=== PATIENT | female | born 1965 | race Caucasian/White ===

== ENCOUNTER 2017-01-17 23:51 | Emergency (ER) | payer MEDICAID ==
[~2017-01-17] VITALS: Ht 170.2 cm; Wt 78.9 kg
[~2017-01-17 23:51] MED LIST: AMLO5TAB7 PO; ASPI81EC97 PO; ATOR20TA40 PO; BENA20TA PO; CLON2TAB PO; CLOP75TA PO; DOCU100C14 PO; FERR325E14 PO; QUET400T PO; [UNRECOGNIZED DRUG - CODE] PO
[2017-01-17 23:54] VITALS: BP 155/100
--- NOTE | 2017-01-18 00:49 | NUR ---
PT RETURN FROM CT TO LOBBY
--- NOTE | 2017-01-18 01:10 | NUR ---
PT TAKEN TO BED 6
--- NOTE | 2017-01-18 01:14 | NUR ---
Dr. Hernandez evaluating patient at bedside.
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
[2017-01-18] MEDS ORDERED: fentaNYL 0.05 MG/ML VIAL IM ONE (01:25)
[2017-01-18 01:58] VITALS: BP 140/70
--- NOTE | 2017-01-18 01:58 | NUR ---
Patient discharged with v/s stable. Written and verbal after care instructions given and explained. Patient alert, oriented and verbalized understanding of instructions. Ambulatory with steady gait. All questions addressed prior to discharge. ID band removed. Patient advised to follow up with PMD. Rx of TRAMADOL 50 MG, REGLAN 10 MG given. Patient educated on indication of medication including possible reaction and side effects. Opportunity to ask questions provided and answered.
== END 2017-01-18 01:58 | disposition home or self-care (01) ==
LOC: MED 23:51
DX: S09.90XA Unspecified injury of head, initial encounter (principal); I10 Essential (primary) hypertension; Z88.6 Allergy status to analgesic agent; Z88.5 Allergy status to narcotic agent; W22.8XXA Striking against or struck by other objects, initial encounter; Y93.89 Activity, other specified; Y92.89 Other specified places as the place of occurrence of the external cause; Y99.8 Other external cause status
CPT/HCPCS: 70450; 96372; 99283; J3010

== ENCOUNTER 2017-08-11 15:04 | Emergency (ER) | payer MEDICAID ==
[~2017-08-11] VITALS: Ht 170.2 cm; Wt 75.5 kg
[~2017-08-11 15:04] MED LIST changes: +DOCU-7 PO; -DOCU100C14 PO
[2017-08-11 15:24] VITALS: BP 162/92
--- NOTE | 2017-08-11 15:35 | NUR ---
PATIENT PRESENTS TO ED WITH C/O DIARRHEA X 5 WKS; STERNAL CP, LEFT LEG PAIN 10/10 HX; HTN, CARDIAC DISORDERS (STENTS), ASTHMA RX; LOTENSIN, KLONIPIN, ASPIRIN, ATROVASTATIN, , FE SULFATE, AMLOPIDINE; DENIES N/V/; SKIN IS PINK/WARM/DRY; AAOX4 WITH EVEN AND STEADY GAIT; LUNGS CLEAR BL; HR EVEN AND REGULAR; PT DENIES ANY FEVER, CP, SOB, OR COUGH AT THIS TIME; PATIENT STATES PAIN OF 10/10 AT THIS TIME; VSS; PATIENT POSITIONED FOR COMFORT; HOB ELEVATED; BEDRAILS UP X2; BED DOWN. ER MD MADE AWARE OF PT STATUS.
--- NOTE | 2017-08-11 15:46 | NUR ---
DR JIMENEZ EVALUATING AAO PT AT BEDSIDE
[2017-08-11] MEDS ORDERED: NACL 0.9% 1,000 ML IV SCH (15:51)
[2017-08-11 16:21] LABS: BASOPHILS # (AUTO) 0.1 K/uL (0.00-0.22); EOSINOPHILS # (AUTO) 0.3 K/uL (0-0.4); EOSINOPHILS % (AUTO) 10.4 % (0.0-4.0); HEMOGLOBIN 10.7 g/dL (12.0-16.0); LYMPHOCYTES # (AUTO) 0.7 K/uL (2.5-16.5); LYMPHOCYTES % (AUTO) 21.5 % (20.5-51.1); MEAN CORPUSCULAR HEMOGLOBIN 28 pg (27-31); MEAN CORPUSCULAR HGB CONC 33 g/dL (33-37); MEAN CORPUSCULAR VOLUME 85 fL (80-94); MONOCYTES # (AUTO) 0.2 K/uL (0.8-1.0); MONOCYTES % (AUTO) 7.7 % (1.7-9.3); NEUTROPHILS # (AUTO) 1.8 K/uL (1.8-7.7); NEUTROPHILS % (AUTO) 58.4 % (42.2-75.2); PLATELET COUNT (AUTO) 233 K/uL (140-450); RED BLOOD CELL COUNT(AUTO) 3.87 MIL/uL (4.20-5.40); RED CELL DISTRIBUTION WIDTH 15.3 % (11.6-13.7); WHITE BLOOD COUNT (AUTO) 3.1 K/uL (4.8-10.8)
--- NOTE | 2017-08-11 16:40 | NUR ---
PT TAKEN OFF THE UNIT VIA GURNEY BY LAMINATOR PRINTED CIRCUIT BOARDS ALEK FOR CT OF THE ABDOMEN
[2017-08-11 16:47] LABS: ALBUMIN 3.3 g/dL (3.4-5.0); ANION GAP 12.8 (8-16); CREATININE 0.7 mg/dL (0.6-1.3); POTASSIUM 3.8 mmol/L (3.5-5.1); TOTAL BILIRUBIN 0.3 mg/dL (0.0-1.0)
--- NOTE | 2017-08-11 17:32 | NUR ---
DR JIMENEZ UPDATING PT AT BEDSIDE
[2017-08-11 18:08] VITALS: BP 144/88
--- NOTE | 2017-08-11 18:08 | NUR ---
Patient discharged with v/s stable. Written and verbal after care instructions given and explained. Patient alert, oriented and verbalized understanding of instructions. Ambulatory with steady gait. All questions addressed prior to discharge. ID band removed. Patient advised to follow up with PMD. Rx of CIPRO, LOMOTIL, ULTRAM given. Patient educated on indication of medication including possible reaction and side effects. Opportunity to ask questions provided and answered.
[2017-08-11 19:13] LABS: APPEARANCE,URINE CLEAR (CLEAR); BILIRUBIN,URINE NEGATIVE (NEGATIVE); BLOOD, URINE NEGATIVE (NEGATIVE); COLOR,URINE YELLOW (YELLOW); LEUKOCYTE ESTERASE ,URINE NEGATIVE (NEGATIVE); NITRITE, URINE NEGATIVE (NEGATIVE); PH,URINE 6.5 (5.0-9.0); UGLUCOSE NEGATIVE (NEGATIVE)
== END 2017-08-11 18:08 | disposition home or self-care (01) ==
LOC: MED 15:04
DX: N93.8 Other specified abnormal uterine and vaginal bleeding (principal); R19.7 Diarrhea, unspecified; R07.89 Other chest pain; I10 Essential (primary) hypertension; Z98.62 Peripheral vascular angioplasty status; Z88.6 Allergy status to analgesic agent; Z79.899 Other long term (current) drug therapy
CPT/HCPCS: 36415; 71010; 74176; 80053; 81003; 81025; 83690; 83880; 84484; 84703; 85025; 85610; 85730; 86886; 86900; 86901; 93005; 96360; 99285; J7030; Q0092

== ENCOUNTER 2018-03-31 05:25 | Emergency (ER) | payer MEDICAID, OTHER ==
[~2018-03-31] VITALS: Ht 170.2 cm; Wt 74.6 kg
[2018-03-31 05:33] VITALS: BP 165/89
[2018-03-31 06:31] VITALS: BP 158/89
== END 2018-03-31 06:31 | disposition home or self-care (01) ==
LOC: MED 05:25
DX: N93.8 Other specified abnormal uterine and vaginal bleeding (principal); R21 Rash and other nonspecific skin eruption; I25.2 Old myocardial infarction; Z79.899 Other long term (current) drug therapy; Z88.6 Allergy status to analgesic agent
CPT/HCPCS: 99283

== ENCOUNTER 2018-03-31 17:17 | Emergency (ER) | payer OTHER ==
[~2018-03-31] VITALS: Ht 167.6 cm; Wt 68.5 kg
--- NOTE | 2018-03-31 17:17 | NUR ---
PT BIBA TO ER BED 06
[2018-03-31 17:20] VITALS: BP 170/108
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
--- NOTE | 2018-03-31 18:30 | NUR ---
Patient appears to be resting comfortably in bed. Vital Signs within normal limits. Respirations even and unlabored.
--- NOTE | 2018-03-31 19:08 | NUR ---
RECIEVED REPORT FROM KARSTEN HAM.
--- NOTE | 2018-03-31 19:37 | NUR ---
DR SARAVIA AT BEDSIDE EVALUATING PATIENT.
[2018-03-31] MEDS ORDERED: CEPHALEXIN 500 MG CAP PO ONE (19:55)
[2018-03-31] MEDS ORDERED: predniSONE 20 MG TAB PO ONE (19:55)
[2018-03-31 20:25] VITALS: BP 170/108
--- NOTE | 2018-03-31 20:25 | NUR ---
Patient discharged with v/s stable with decreased pain. Written and verbal after care instructions given and explained. Patient alert, oriented and verbalized understanding of instructions. Ambulatory with steady gait. All questions addressed prior to discharge. ID band removed. Patient advised to follow up with PMD. Rx of Keflex, Prednisone given. Patient educated on indication of medication including possible reaction and side effects. Opportunity to ask questions provided and answered.
== END 2018-03-31 20:25 | disposition home or self-care (01) ==
LOC: MED 17:17
DX: L30.9 Dermatitis, unspecified (principal); L03.114 Cellulitis of left upper limb; I10 Essential (primary) hypertension; I25.2 Old myocardial infarction; Z88.6 Allergy status to analgesic agent; Z79.899 Other long term (current) drug therapy
CPT/HCPCS: 81002; 81025; 99284; J7512; Q0163

== ENCOUNTER 2018-05-30 12:00 | Emergency (ER) | payer OTHER ==
[~2018-05-30] VITALS: Ht 167.6 cm; Wt 73.9 kg
--- NOTE | 2018-05-30 12:18 | NUR ---
PT AMBULATES TO BED 7
[2018-05-30 12:27] VITALS: BP 151/85
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
--- NOTE | 2018-05-30 12:31 | NUR ---
DR COTA EVALUATING PT AT BEDSIDE
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
[2018-05-30] MEDS ORDERED: diphenhydrAMINE 50 MG/ML VIAL IM ONE (13:55)
[2018-05-30] MEDS ORDERED: HYDROmorphone PFS 2 MG/ML SYR IM ONE (13:55)
--- NOTE | 2018-05-30 14:36 | NUR ---
[place] [employer] ARRIVED AT THE REQUEST OF DR COTA
[2018-05-30 15:30] VITALS: BP 177/97
--- NOTE | 2018-05-30 15:30 | NUR ---
Patient discharged with v/s stable. Written and verbal after care instructions given and explained. Patient alert, oriented and verbalized understanding of instructions. Ambulatory with steady gait. All questions addressed prior to discharge. ID band removed. Patient advised to follow up with PMD. Rx of FIORICET given. Patient educated on indication of medication including possible reaction and side effects. Opportunity to ask questions provided and answered.
== END 2018-05-30 15:30 | disposition home or self-care (01) ==
LOC: MED 12:00
DX: R51 Headache (principal); M54.2 Cervicalgia; J45.909 Unspecified asthma, uncomplicated; I10 Essential (primary) hypertension; Z88.5 Allergy status to narcotic agent; Z88.1 Allergy status to other antibiotic agents; Z88.2 Allergy status to sulfonamides; Z79.899 Other long term (current) drug therapy; Z79.1 Long term (current) use of non-steroidal anti-inflammatories (NSAID)
CPT/HCPCS: 70450; 72125; 96372; 99284; J1170; J1200

== ENCOUNTER 2018-06-21 14:35 | Inpatient (IN) | payer OTHER ==
[~2018-06-21] VITALS: Ht 167.6 cm; Wt 74.8 kg
[2018-06-21 15:02] VITALS: BP 177/104
[2018-06-21] MEDS ORDERED: NACL 0.9% 1,000 ML IV ONE (15:35)
[2018-06-21] MEDS ORDERED: diphenhydrAMINE 50 MG/ML VIAL IVP ONE (15:35)
[2018-06-21] MEDS ORDERED: LORazepam 2 MG/ML VIAL IVP ONE (15:35)
[2018-06-21 16:21] LABS: BASOPHILS # (AUTO) 0.1 K/uL (0.00-0.22); BASOPHILS % (AUTO) 0.8 % (0.0-2.0); EOSINOPHILS # (AUTO) 0.2 K/uL (0-0.4); EOSINOPHILS % (AUTO) 3.2 % (0.0-4.0); HEMATOCRIT 37.6 % (36-48); HEMOGLOBIN 12.4 g/dL (12.0-16.0); LYMPHOCYTES # (AUTO) 1.2 K/uL (2.5-16.5); LYMPHOCYTES % (AUTO) 16.4 % (20.5-51.1); MEAN CORPUSCULAR HEMOGLOBIN 30 pg (27-31); MEAN CORPUSCULAR HGB CONC 33 g/dL (33-37); MEAN CORPUSCULAR VOLUME 90.8 fL (80-94); MONOCYTES # (AUTO) 0.4 K/uL (0.8-1.0); MONOCYTES % (AUTO) 4.9 % (1.7-9.3); NEUTROPHILS # (AUTO) 5.4 K/uL (1.8-7.7); NEUTROPHILS % (AUTO) 74.7 % (42.2-75.2); PLATELET COUNT (AUTO) 271 K/uL (140-450); RED BLOOD CELL COUNT(AUTO) 4.14 MIL/uL (4.20-5.40); RED CELL DISTRIBUTION WIDTH 14.9 % (11.6-13.7); WHITE BLOOD COUNT (AUTO) 7.2 K/uL (4.8-10.8)
[2018-06-21 16:55] LABS: ANION GAP 14.4 (8-16); CARBON DIOXIDE 24.1 mmol/L (21-32); CHLORIDE 106 mmol/L (98-107); CREATININE 0.5 mg/dL (0.6-1.3); GFR ARICAN-AMERICAN 167 mL/min (>90); GLUCOSE 106 mg/dL (74-106); POTASSIUM 3.5 mmol/L (3.5-5.1); SODIUM SERUM 141 mmol/L (136-145); UREA NITROGEN, BLOOD 8 mg/dL (7-18)
[2018-06-21 16:57] LABS: PROTHROMBIN TIME 11.4 secs (10.8-13.4)
[2018-06-21 17:02] LABS: ALBUMIN 3.9 g/dL (3.4-5.0); ASPARTATE AMINOTRANSFERASE 33 U/L (15-37); TOTAL BILIRUBIN 0.6 mg/dL (0.0-1.0)
[2018-06-21 17:04] LABS: SALICYLATE < 2.8 mg/dL (2.8-20.0)
[2018-06-21 17:08] LABS: ACETAMINOPHEN < 0.5 ug/ml (10-30)
[2018-06-21] MEDS ORDERED: ONDANSETRON 4 MG/2 ML VIAL IVP PRN (17:15)
[2018-06-21] MEDS ORDERED: HYDROcodone/APAP 5/325 MG 1 TAB TAB PO PRN (17:15)
[2018-06-21] MEDS ORDERED: ACETAMINOPHEN 325 MG TAB PO PRN (17:15)
[2018-06-21 17:28] LABS: APPEARANCE,URINE CLEAR (CLEAR); BILIRUBIN,URINE NEGATIVE (NEGATIVE); BLOOD, URINE NEGATIVE (NEGATIVE); COLOR,URINE YELLOW (YELLOW); LEUKOCYTE ESTERASE ,URINE NEGATIVE (NEGATIVE); NITRITE, URINE NEGATIVE (NEGATIVE); UGLUCOSE NEGATIVE (NEGATIVE)
[2018-06-21 17:38] LABS: BARBITURATE, URINE NEG. ng/ml (NEG <=200); BENZODIAZEPINE, URINE NEG. ng/mL (NEG <=200); CANNABINOID, URINE POS. ng/mL (NEG <=50); COCAINE, URINE NEG. ng/mL (NEG <=300); OPIATE, URINE NEG. ng/mL (NEG <=2000); PHENCYCLIDINE SCREEN,URINE NEG. ng/mL (NEG <=25)
[2018-06-21 20:00] VITALS: BP 170/90
[2018-06-21] MEDS ORDERED: NON-FORMULARY ITEM (Atorvastatin Calcium 20 MG) PO SCH (21:00)
[2018-06-21] MEDS ORDERED: NON-FORMULARY ITEM (Docusate Sodium 100 MG) PO SCH (21:00)
[2018-06-21] MEDS ORDERED: NITROGLYCERIN 0.4 MG TAB SL PRN (21:45)
[2018-06-21] MEDS: DOCUSATE SODIUM 100 MG GELCAP PO SCH (21:51)
[2018-06-21] MEDS: clonazePAM 0.5 MG TAB PO PRN (21:54)
[2018-06-22 00:15] VITALS: BP 148/78
[2018-06-22 00:43] LABS: CREATINE KINASE MB 4.1 ng/mL (0-3.6)
[2018-06-22 05:01] VITALS: BP 104/53
[2018-06-22 08:00] VITALS: BP 113/68
[2018-06-22] MEDS: CLOPIDOGREL 75 MG TAB PO SCH ×2 (09:00→14:16)
[2018-06-22] MEDS ORDERED: QUEtiapine FUMARATE 100 MG TAB PO SCH (09:00)
[2018-06-22] MEDS: ATORVASTATIN 20 MG TAB PO SCH ×2 (09:00→14:16)
[2018-06-22] MEDS: DOCUSATE SODIUM 100 MG GELCAP PO SCH ×2 (09:00→21:09)
[2018-06-22] MEDS: amLODIPine 5 MG TAB PO SCH (09:00)
[2018-06-22] MEDS ORDERED: NON-FORMULARY ITEM (Amlodipine Besylate (Amlodipine) 5 MG) PO SCH (09:00)
[2018-06-22] MEDS: ASPIRIN 81 MG TAB.CHEW PO SCH ×2 (09:00→14:16)
[2018-06-22 10:12] LABS: BASOPHILS % (AUTO) 1.2 % (0.0-2.0); EOSINOPHILS # (AUTO) 0.2 K/uL (0-0.4); EOSINOPHILS % (AUTO) 10.5 % (0.0-4.0); HEMATOCRIT 33.1 % (36-48); HEMOGLOBIN 11.1 g/dL (12.0-16.0); LYMPHOCYTES # (AUTO) 0.7 K/uL (2.5-16.5); LYMPHOCYTES % (AUTO) 35.9 % (20.5-51.1); MEAN CORPUSCULAR HEMOGLOBIN 30 pg (27-31); MEAN CORPUSCULAR HGB CONC 34 g/dL (33-37); MEAN CORPUSCULAR VOLUME 90.2 fL (80-94); MONOCYTES # (AUTO) 0.2 K/uL (0.8-1.0); NEUTROPHILS # (AUTO) 0.8 K/uL (1.8-7.7); NEUTROPHILS % (AUTO) 42.4 % (42.2-75.2); PLATELET COUNT (AUTO) 218 K/uL (140-450); RED BLOOD CELL COUNT(AUTO) 3.67 MIL/uL (4.20-5.40)
[2018-06-22 10:51] LABS: WHITE BLOOD COUNT (AUTO) 1.8 K/uL (4.8-10.8)
[2018-06-22 12:00] VITALS: BP 111/70
[2018-06-22 13:04] LABS: ALBUMIN 2.9 g/dL (3.4-5.0); ANION GAP 10.5 (8-16); CARBON DIOXIDE 27.2 mmol/L (21-32); CREATININE 0.7 mg/dL (0.6-1.3); MAGNESIUM 1.8 mg/dL (1.8-2.4); POTASSIUM 3.7 mmol/L (3.5-5.1); TOTAL BILIRUBIN 0.4 mg/dL (0.0-1.0)
[2018-06-22] MEDS ORDERED: DIVALPROEX 500 MG TABEC PO SCH (13:12)
[2018-06-22] MEDS ORDERED: HYDROcodone/APAP 5/325 MG 1 TAB TAB PO PRN (14:13)
[2018-06-22 16:00] VITALS: BP 128/79
[2018-06-22] MEDS ORDERED: DIVA500T1 PO (17:10)
[2018-06-22 20:00] VITALS: BP 119/63
[2018-06-22] MEDS: QUEtiapine FUMARATE 100 MG TAB PO SCH (21:09)
[2018-06-22] MEDS: DIVALPROEX 500 MG TABEC PO SCH (21:09)
[2018-06-23] VITALS: BP 126/72
[2018-06-23] MEDS ORDERED: ALBUTEROL 0.083% 2.5 MG/3 ML NEBU INH PRN (03:15)
[2018-06-23] MEDS ORDERED: ALBUTEROL 0.083% 2.5 MG/3 ML NEBU INH ONE (03:27)
[2018-06-23 04:00] VITALS: BP 129/62
[2018-06-23 07:49] LABS: BASOPHILS % (AUTO) 0.9 % (0.0-2.0); EOSINOPHILS # (AUTO) 0.3 K/uL (0-0.4); EOSINOPHILS % (AUTO) 15.8 % (0.0-4.0); HEMOGLOBIN 11.2 g/dL (12.0-16.0); LYMPHOCYTES # (AUTO) 0.7 K/uL (2.5-16.5); LYMPHOCYTES % (AUTO) 32.9 % (20.5-51.1); MEAN CORPUSCULAR HEMOGLOBIN 31 pg (27-31); MEAN CORPUSCULAR HGB CONC 34 g/dL (33-37); MEAN CORPUSCULAR VOLUME 90.2 fL (80-94); MONOCYTES # (AUTO) 0.2 K/uL (0.8-1.0); MONOCYTES % (AUTO) 9.7 % (1.7-9.3); NEUTROPHILS # (AUTO) 0.8 K/uL (1.8-7.7); NEUTROPHILS % (AUTO) 40.7 % (42.2-75.2); PLATELET COUNT (AUTO) 207 K/uL (140-450); RED BLOOD CELL COUNT(AUTO) 3.66 MIL/uL (4.20-5.40); RED CELL DISTRIBUTION WIDTH 14.5 % (11.6-13.7)
[2018-06-23 08:00] VITALS: BP 138/82
[2018-06-23] MEDS: ASPIRIN 81 MG TAB.CHEW PO SCH (09:38)
[2018-06-23] MEDS: amLODIPine 5 MG TAB PO SCH (09:39)
[2018-06-23] MEDS: CLOPIDOGREL 75 MG TAB PO SCH (09:39)
[2018-06-23] MEDS: DIVALPROEX 500 MG TABEC PO SCH ×2 (09:39→20:17)
[2018-06-23] MEDS: ATORVASTATIN 20 MG TAB PO SCH (09:39)
[2018-06-23] MEDS: DOCUSATE SODIUM 100 MG GELCAP PO SCH ×2 (09:39→20:17)
[2018-06-23 12:00] VITALS: BP 132/50
[2018-06-23] MEDS: ALBUTEROL SULFATE/IPRATROPIU 3 ML SOL IH PRN (13:42)
[2018-06-23 16:00] VITALS: BP 147/77
[2018-06-23] MEDS: ALBUTEROL SULFATE/IPRATROPIU 3 ML SOL IH SCH ×2 (19:00→20:52)
[2018-06-23 20:00] VITALS: BP 145/78
[2018-06-23] MEDS: QUEtiapine FUMARATE 100 MG TAB PO SCH (20:17)
[2018-06-23] MEDS ORDERED: DIVALPROEX 500 MG TABER PO SCH (21:00)
[2018-06-24 00:20] VITALS: BP 136/72
[2018-06-24] MEDS: ALBUTEROL SULFATE/IPRATROPIU 3 ML SOL IH SCH ×6 (03:00→23:00)
[2018-06-24 04:00] VITALS: BP 115/64
[2018-06-24 06:31] LABS: BASOPHILS % (AUTO) 0.7 % (0.0-2.0); EOSINOPHILS # (AUTO) 0.3 K/uL (0-0.4); EOSINOPHILS % (AUTO) 13.2 % (0.0-4.0); HEMATOCRIT 35.9 % (36-48); HEMOGLOBIN 12.2 g/dL (12.0-16.0); LYMPHOCYTES # (AUTO) 0.8 K/uL (2.5-16.5); LYMPHOCYTES % (AUTO) 33.1 % (20.5-51.1); MEAN CORPUSCULAR HEMOGLOBIN 31 pg (27-31); MEAN CORPUSCULAR HGB CONC 34 g/dL (33-37); MEAN CORPUSCULAR VOLUME 90.3 fL (80-94); MONOCYTES # (AUTO) 0.3 K/uL (0.8-1.0); PLATELET COUNT (AUTO) 245 K/uL (140-450); RED BLOOD CELL COUNT(AUTO) 3.97 MIL/uL (4.20-5.40); RED CELL DISTRIBUTION WIDTH 14.6 % (11.6-13.7); WHITE BLOOD COUNT (AUTO) 2.4 K/uL (4.8-10.8)
[2018-06-24 08:00] VITALS: BP 119/119
[2018-06-24] MEDS: DOCUSATE SODIUM 100 MG GELCAP PO SCH ×2 (10:16→20:56)
[2018-06-24] MEDS: ATORVASTATIN 20 MG TAB PO SCH (10:16)
[2018-06-24] MEDS: amLODIPine 5 MG TAB PO SCH (10:16)
[2018-06-24] MEDS: CLOPIDOGREL 75 MG TAB PO SCH (10:17)
[2018-06-24] MEDS: ASPIRIN 81 MG TAB.CHEW PO SCH (10:17)
[2018-06-24] MEDS: DIVALPROEX 500 MG TABEC PO SCH ×2 (10:17→20:57)
[2018-06-24 12:00] VITALS: BP 146/87
[2018-06-24] MEDS ORDERED: RANOLAZINE 500 MG TER PO SCH (12:00)
[2018-06-24] MEDS: clonazePAM 0.5 MG TAB PO PRN (13:38)
[2018-06-24 16:00] VITALS: BP 116/80
[2018-06-24] MEDS: BUDESONIDE 0.25 MG/2 ML NEBU INH SCH (19:30)
[2018-06-24 20:00] VITALS: BP 134/73
[2018-06-24] MEDS: QUEtiapine FUMARATE 100 MG TAB PO SCH (20:56)
[2018-06-24] MEDS: RANOLAZINE 500 MG TER PO SCH (20:57)
[2018-06-24] MEDS: ALBUTEROL SULFATE/IPRATROPIU 3 ML SOL IH PRN (21:22)
[2018-06-25] MEDS: ALBUTEROL SULFATE/IPRATROPIU 3 ML SOL IH SCH ×6 (03:09→23:00)
[2018-06-25 04:00] VITALS: BP 115/66
[2018-06-25 06:47] LABS: EOSINOPHILS # (AUTO) 0.3 K/uL (0-0.4); HEMATOCRIT 36.8 % (36-48); HEMOGLOBIN 12.5 g/dL (12.0-16.0); LYMPHOCYTES # (AUTO) 0.9 K/uL (2.5-16.5); LYMPHOCYTES % (AUTO) 28.1 % (20.5-51.1); MEAN CORPUSCULAR HEMOGLOBIN 30 pg (27-31); MEAN CORPUSCULAR HGB CONC 34 g/dL (33-37); MEAN CORPUSCULAR VOLUME 89.1 fL (80-94); MONOCYTES # (AUTO) 0.4 K/uL (0.8-1.0); NEUTROPHILS # (AUTO) 1.6 K/uL (1.8-7.7); NEUTROPHILS % (AUTO) 50.9 % (42.2-75.2); PLATELET COUNT (AUTO) 240 K/uL (140-450); RED BLOOD CELL COUNT(AUTO) 4.13 MIL/uL (4.20-5.40); RED CELL DISTRIBUTION WIDTH 14.6 % (11.6-13.7); WHITE BLOOD COUNT (AUTO) 3.2 K/uL (4.8-10.8)
[2018-06-25] MEDS: BUDESONIDE 0.25 MG/2 ML NEBU INH SCH ×3 (07:30→19:39)
[2018-06-25 08:00] VITALS: BP 139/84
[2018-06-25] MEDS ORDERED: predniSONE 20 MG TAB PO SCH (09:15)
[2018-06-25] MEDS: ALBUTEROL SULFATE/IPRATROPIU 3 ML SOL IH PRN (09:28)
[2018-06-25] MEDS: DOCUSATE SODIUM 100 MG GELCAP PO SCH ×2 (09:39→20:14)
[2018-06-25] MEDS: CLOPIDOGREL 75 MG TAB PO SCH (09:40)
[2018-06-25] MEDS: amLODIPine 5 MG TAB PO SCH (09:40)
[2018-06-25] MEDS: ATORVASTATIN 20 MG TAB PO SCH (09:40)
[2018-06-25] MEDS: DIVALPROEX 500 MG TABEC PO SCH ×2 (09:40→20:14)
[2018-06-25] MEDS: ASPIRIN 81 MG TAB.CHEW PO SCH (09:41)
[2018-06-25] MEDS: RANOLAZINE 500 MG TER PO SCH ×2 (09:43→20:21)
[2018-06-25] MEDS: LORazepam 1 MG TAB PO PRN ×2 (10:49→20:13)
[2018-06-25 16:00] VITALS: BP 137/78
[2018-06-25] MEDS: QUEtiapine FUMARATE 100 MG TAB PO SCH (20:15)
[2018-06-26 04:00] VITALS: BP 115/64
[2018-06-26] MEDS: ALBUTEROL SULFATE/IPRATROPIU 3 ML SOL IH SCH ×6 (07:17→23:00)
[2018-06-26] MEDS: BUDESONIDE 0.25 MG/2 ML NEBU INH SCH (07:18)
[2018-06-26 08:00] VITALS: BP 117/70
[2018-06-26] MEDS: LORazepam 1 MG TAB PO PRN (08:04)
[2018-06-26] MEDS: RANOLAZINE 500 MG TER PO SCH ×2 (09:04→20:16)
[2018-06-26] MEDS: predniSONE 20 MG TAB PO SCH (09:05)
[2018-06-26] MEDS: CLOPIDOGREL 75 MG TAB PO SCH (09:06)
[2018-06-26] MEDS: DOCUSATE SODIUM 100 MG GELCAP PO SCH ×2 (09:06→20:15)
[2018-06-26] MEDS: ATORVASTATIN 20 MG TAB PO SCH (09:07)
[2018-06-26] MEDS: DIVALPROEX 500 MG TABEC PO SCH ×2 (09:07→20:15)
[2018-06-26] MEDS: amLODIPine 5 MG TAB PO SCH (09:08)
[2018-06-26] MEDS: ASPIRIN 81 MG TAB.CHEW PO SCH (09:08)
[2018-06-26] MEDS: ALBUTEROL SULFATE/IPRATROPIU 3 ML SOL IH PRN (13:26)
[2018-06-26 16:00] VITALS: BP 129/68
[2018-06-26] MEDS: QUEtiapine FUMARATE 100 MG TAB PO SCH (20:16)
[2018-06-27] VITALS: BP 121/65
[2018-06-27] MEDS: ALBUTEROL SULFATE/IPRATROPIU 3 ML SOL IH SCH ×6 (03:00→23:00)
[2018-06-27] MEDS: clonazePAM 0.5 MG TAB PO PRN (04:47)
[2018-06-27] MEDS: ALBUTEROL SULFATE/IPRATROPIU 3 ML SOL IH PRN (04:59)
[2018-06-27] MEDS: BUDESONIDE 0.25 MG/2 ML NEBU INH SCH ×2 (06:42→19:30)
[2018-06-27 08:00] VITALS: BP 117/64
[2018-06-27] MEDS: CLOPIDOGREL 75 MG TAB PO SCH (08:43)
[2018-06-27] MEDS: ATORVASTATIN 20 MG TAB PO SCH (08:43)
[2018-06-27] MEDS: DIVALPROEX 500 MG TABEC PO SCH ×2 (08:44→20:48)
[2018-06-27] MEDS: DOCUSATE SODIUM 100 MG GELCAP PO SCH ×2 (08:44→20:47)
[2018-06-27] MEDS: predniSONE 20 MG TAB PO SCH (08:44)
[2018-06-27] MEDS: amLODIPine 5 MG TAB PO SCH (08:44)
[2018-06-27] MEDS: ASPIRIN 81 MG TAB.CHEW PO SCH (08:44)
[2018-06-27] MEDS: RANOLAZINE 500 MG TER PO SCH ×2 (08:45→20:48)
[2018-06-27] MEDS: LORazepam 1 MG TAB PO PRN (14:45)
[2018-06-27 16:00] VITALS: BP 126/67
[2018-06-27] MEDS: QUEtiapine FUMARATE 100 MG TAB PO SCH (20:48)
[2018-06-27 23:55] VITALS: BP 122/76
[2018-06-28] MEDS: clonazePAM 0.5 MG TAB PO PRN ×2 (01:51→20:34)
[2018-06-28] MEDS: ALBUTEROL SULFATE/IPRATROPIU 3 ML SOL IH SCH ×6 (03:00→23:00)
[2018-06-28] MEDS: BUDESONIDE 0.25 MG/2 ML NEBU INH SCH ×2 (07:30→20:10)
[2018-06-28 08:00] VITALS: BP 118/67
[2018-06-28] MEDS: ASPIRIN 81 MG TAB.CHEW PO SCH (09:36)
[2018-06-28] MEDS: RANOLAZINE 500 MG TER PO SCH ×2 (09:36→20:38)
[2018-06-28] MEDS: ATORVASTATIN 20 MG TAB PO SCH (09:37)
[2018-06-28] MEDS: DIVALPROEX 500 MG TABEC PO SCH ×2 (09:37→20:32)
[2018-06-28] MEDS: CLOPIDOGREL 75 MG TAB PO SCH (09:37)
[2018-06-28] MEDS: DOCUSATE SODIUM 100 MG GELCAP PO SCH ×2 (09:37→20:32)
[2018-06-28] MEDS: amLODIPine 5 MG TAB PO SCH (09:38)
[2018-06-28] MEDS: predniSONE 20 MG TAB PO SCH (09:38)
[2018-06-28] MEDS: LORazepam 1 MG TAB PO PRN ×2 (10:23→18:29)
[2018-06-28 16:00] VITALS: BP 133/84
[2018-06-28] MEDS: QUEtiapine FUMARATE 100 MG TAB PO SCH (20:32)
[2018-06-28 20:42] VITALS: BP 140/75
[2018-06-28 23:47] VITALS: BP 112/54
[2018-06-29] MEDS: ALBUTEROL SULFATE/IPRATROPIU 3 ML SOL IH SCH ×6 (03:00→23:00)
[2018-06-29] MEDS: BUDESONIDE 0.25 MG/2 ML NEBU INH SCH ×2 (06:50→19:39)
[2018-06-29 08:00] VITALS: BP 113/64
[2018-06-29] MEDS: ASPIRIN 81 MG TAB.CHEW PO SCH (09:02)
[2018-06-29] MEDS: amLODIPine 5 MG TAB PO SCH (09:03)
[2018-06-29] MEDS: ATORVASTATIN 20 MG TAB PO SCH (09:03)
[2018-06-29] MEDS: DIVALPROEX 500 MG TABEC PO SCH ×2 (09:03→21:08)
[2018-06-29] MEDS: CLOPIDOGREL 75 MG TAB PO SCH (09:03)
[2018-06-29] MEDS: predniSONE 20 MG TAB PO SCH (09:04)
[2018-06-29] MEDS: DOCUSATE SODIUM 100 MG GELCAP PO SCH ×2 (09:04→21:07)
[2018-06-29] MEDS: RANOLAZINE 500 MG TER PO SCH ×2 (09:04→21:09)
[2018-06-29 09:48] LABS: BASOPHILS % (AUTO) 0.3 % (0.0-2.0); EOSINOPHILS % (AUTO) 0.2 % (0.0-4.0); HEMATOCRIT 37.4 % (36-48); HEMOGLOBIN 12.5 g/dL (12.0-16.0); LYMPHOCYTES # (AUTO) 1.2 K/uL (2.5-16.5); LYMPHOCYTES % (AUTO) 33.2 % (20.5-51.1); MEAN CORPUSCULAR HEMOGLOBIN 30 pg (27-31); MEAN CORPUSCULAR HGB CONC 33 g/dL (33-37); MEAN CORPUSCULAR VOLUME 89.4 fL (80-94); MONOCYTES # (AUTO) 0.3 K/uL (0.8-1.0); MONOCYTES % (AUTO) 8.7 % (1.7-9.3); NEUTROPHILS # (AUTO) 2.1 K/uL (1.8-7.7); NEUTROPHILS % (AUTO) 57.6 % (42.2-75.2); PLATELET COUNT (AUTO) 251 K/uL (140-450); RED BLOOD CELL COUNT(AUTO) 4.18 MIL/uL (4.20-5.40); RED CELL DISTRIBUTION WIDTH 14.4 % (11.6-13.7); WHITE BLOOD COUNT (AUTO) 3.7 K/uL (4.8-10.8)
[2018-06-29 11:38] LABS: ALBUMIN 2.6 g/dL (3.4-5.0); ANION GAP 13.2 (8-16); CARBON DIOXIDE 25.3 mmol/L (21-32); CREATININE 0.7 mg/dL (0.6-1.3); POTASSIUM 3.5 mmol/L (3.5-5.1); TOTAL BILIRUBIN 0.2 mg/dL (0.0-1.0)
[2018-06-29] MEDS: LORazepam 1 MG TAB PO PRN ×2 (14:25→21:08)
[2018-06-29 16:01] VITALS: BP 142/84
[2018-06-29] MEDS: QUEtiapine FUMARATE 100 MG TAB PO SCH (21:09)
[2018-06-30] VITALS: BP 120/72
[2018-06-30 08:00] VITALS: BP 126/60
[2018-06-30] MEDS: BUDESONIDE 0.25 MG/2 ML NEBU INH SCH (08:22)
[2018-06-30] MEDS: ALBUTEROL SULFATE/IPRATROPIU 3 ML SOL IH PRN ×2 (08:32→16:26)
[2018-06-30] MEDS: ASPIRIN 81 MG TAB.CHEW PO SCH ×2 (08:47→20:20)
[2018-06-30] MEDS: DOCUSATE SODIUM 100 MG GELCAP PO SCH ×3 (08:47→20:20)
[2018-06-30] MEDS: predniSONE 20 MG TAB PO SCH (08:48)
[2018-06-30] MEDS: RANOLAZINE 500 MG TER PO SCH ×2 (08:48→20:06)
[2018-06-30] MEDS: ATORVASTATIN 20 MG TAB PO SCH (08:48)
[2018-06-30] MEDS: DIVALPROEX 500 MG TABEC PO SCH ×2 (08:49→20:05)
[2018-06-30] MEDS: amLODIPine 5 MG TAB PO SCH (08:49)
[2018-06-30] MEDS: CLOPIDOGREL 75 MG TAB PO SCH (08:50)
[2018-06-30] MEDS: ENOXAPARIN 40 MG/0.4 ML SYR SUBQ SCH (08:51)
[2018-06-30] MEDS: LORazepam 1 MG TAB PO PRN ×2 (11:51→20:05)
[2018-06-30 16:00] VITALS: BP 115/61
[2018-06-30] MEDS: QUEtiapine FUMARATE 100 MG TAB PO SCH (20:05)
[2018-06-30 23:01] VITALS: BP 138/79
[2018-07-01] MEDS: BUDESONIDE 0.25 MG/2 ML NEBU INH SCH ×2 (07:30→19:30)
[2018-07-01 08:00] VITALS: BP 109/71
[2018-07-01] MEDS: RANOLAZINE 500 MG TER PO SCH ×2 (08:58→20:15)
[2018-07-01] MEDS: ASPIRIN 81 MG TAB.CHEW PO SCH (08:58)
[2018-07-01] MEDS: predniSONE 20 MG TAB PO SCH (08:58)
[2018-07-01] MEDS: DOCUSATE SODIUM 100 MG GELCAP PO SCH ×2 (08:59→20:13)
[2018-07-01] MEDS: DIVALPROEX 500 MG TABEC PO SCH ×2 (08:59→20:14)
[2018-07-01] MEDS: ATORVASTATIN 20 MG TAB PO SCH (09:00)
[2018-07-01] MEDS: CLOPIDOGREL 75 MG TAB PO SCH (09:00)
[2018-07-01] MEDS: amLODIPine 5 MG TAB PO SCH (09:00)
[2018-07-01] MEDS: LORazepam 1 MG TAB PO PRN ×2 (09:04→19:31)
[2018-07-01] MEDS: ENOXAPARIN 40 MG/0.4 ML SYR SUBQ SCH (09:04)
[2018-07-01] MEDS: ALBUTEROL SULFATE/IPRATROPIU 3 ML SOL IH PRN (13:23)
[2018-07-01 16:00] VITALS: BP 142/79
[2018-07-01] MEDS: QUEtiapine FUMARATE 100 MG TAB PO SCH (20:13)
[2018-07-02] VITALS: BP 125/69
[2018-07-02] MEDS: BUDESONIDE 0.25 MG/2 ML NEBU INH SCH ×2 (07:30→19:17)
[2018-07-02 08:00] VITALS: BP 117/74
[2018-07-02] MEDS: DIVALPROEX 500 MG TABEC PO SCH ×2 (08:41→20:10)
[2018-07-02] MEDS: RANOLAZINE 500 MG TER PO SCH ×2 (08:41→20:08)
[2018-07-02] MEDS: ASPIRIN 81 MG TAB.CHEW PO SCH (08:42)
[2018-07-02] MEDS: ATORVASTATIN 20 MG TAB PO SCH (08:42)
[2018-07-02] MEDS: DOCUSATE SODIUM 100 MG GELCAP PO SCH ×2 (08:42→20:10)
[2018-07-02] MEDS: amLODIPine 5 MG TAB PO SCH (08:43)
[2018-07-02] MEDS: CLOPIDOGREL 75 MG TAB PO SCH (08:43)
[2018-07-02] MEDS: predniSONE 20 MG TAB PO SCH (08:43)
[2018-07-02] MEDS: LORazepam 1 MG TAB PO PRN ×3 (08:44→22:07)
[2018-07-02] MEDS: ENOXAPARIN 40 MG/0.4 ML SYR SUBQ SCH (08:45)
[2018-07-02 16:00] VITALS: BP 127/79
[2018-07-02] MEDS: ALBUTEROL SULFATE/IPRATROPIU 3 ML SOL IH PRN (19:17)
[2018-07-02] MEDS: QUEtiapine FUMARATE 100 MG TAB PO SCH (20:09)
[2018-07-03] VITALS: BP 129/73
[2018-07-03] MEDS: BUDESONIDE 0.25 MG/2 ML NEBU INH SCH (06:51)
[2018-07-03 08:00] VITALS: BP 126/78
[2018-07-03] MEDS: ASPIRIN 81 MG TAB.CHEW PO SCH (08:29)
[2018-07-03] MEDS: amLODIPine 5 MG TAB PO SCH (08:29)
[2018-07-03] MEDS: DOCUSATE SODIUM 100 MG GELCAP PO SCH (08:30)
[2018-07-03] MEDS: CLOPIDOGREL 75 MG TAB PO SCH (08:30)
[2018-07-03] MEDS: predniSONE 20 MG TAB PO SCH (08:30)
[2018-07-03] MEDS: DIVALPROEX 500 MG TABEC PO SCH (08:30)
[2018-07-03] MEDS: ATORVASTATIN 20 MG TAB PO SCH (08:30)
[2018-07-03] MEDS: RANOLAZINE 500 MG TER PO SCH (08:41)
[2018-07-03] MEDS: ENOXAPARIN 40 MG/0.4 ML SYR SUBQ SCH (08:43)
[2018-07-03] MEDS: ALBUTEROL SULFATE/IPRATROPIU 3 ML SOL IH PRN (13:36)
== END 2018-07-03 15:15 | disposition home or self-care (01) | DRG 141 ==
LOC: MED 14:35 → MTU 17:14
PROVIDERS: ADMIT Hospitalist; ATTEND Hospitalist
DX: J45.909 Unspecified asthma, uncomplicated (principal); I26.99 Other pulmonary embolism without acute cor pulmonale; F31.4 Bipolar disorder, current episode depressed, severe, without psychotic features; M94.0 Chondrocostal junction syndrome [Tietze]; I11.9 Hypertensive heart disease without heart failure; R45.851 Suicidal ideations; I10 Essential (primary) hypertension; G40.909 Epilepsy, unspecified, not intractable, without status epilepticus; E78.5 Hyperlipidemia, unspecified; F41.0 Panic disorder [episodic paroxysmal anxiety]; F43.10 Post-traumatic stress disorder, unspecified; F12.10 Cannabis abuse, uncomplicated; R07.89 Other chest pain; D72.819 Decreased white blood cell count, unspecified; I25.10 Atherosclerotic heart disease of native coronary artery without angina pectoris; G89.29 Other chronic pain; F31.9 Bipolar disorder, unspecified; I25.2 Old myocardial infarction; W18.39XA Other fall on same level, initial encounter; Y93.89 Activity, other specified; Y99.8 Other external cause status; Z88.5 Allergy status to narcotic agent; Y92.89 Other specified places as the place of occurrence of the external cause; Z59.0 Homelessness; Z88.8 Allergy status to other drugs, medicaments and biological substances; Z91.5 Personal history of self-harm
CPT/HCPCS: 36415; 70450; 71045; 80053; 80305; 82306; 82550; 82553; 83735; 84484; 85025; 85610; 85730; 87081; 93005; 94640; 96374; 96375; 97161-GP; 99285; G0480; G0482; J1200; J1650; J2060; J7030; J7512; J7613; J7620; J7626; Q0092; Q0163

== ENCOUNTER 2018-10-21 13:59 | Emergency (ER) | payer OTHER ==
[~2018-10-21] VITALS: Ht 170.2 cm; Wt 72.1 kg
[~2018-10-21 13:59] MED LIST changes: +DIVA500T1 PO
[2018-10-21 14:35] VITALS: BP 185/97
--- NOTE | 2018-10-21 15:14 | NUR ---
pt ambulated to bed 8
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
--- NOTE | 2018-10-21 15:56 | NUR ---
Patient discharged with ASYMTOMATIC BP 191/96, NOTIFIED DR ROSEANN MD MADE AWARE.. Written and verbal after care instructions given and explained. Patient alert, oriented and verbalized understanding of instructions. Ambulatory with steady gait. All questions addressed prior to discharge. ID band removed. Patient advised to follow up with PMD. Rx of given. Patient educated on indication of medication including possible reaction and side effects. Opportunity to ask questions provided and answered.
[2018-10-21 15:57] VITALS: BP 191/96
== END 2018-10-21 15:56 | disposition home or self-care (01) ==
LOC: MED 13:59
DX: I10 Essential (primary) hypertension (principal); J45.909 Unspecified asthma, uncomplicated; Z76.0 Encounter for issue of repeat prescription; Z79.82 Long term (current) use of aspirin; Z79.899 Other long term (current) drug therapy; Z88.5 Allergy status to narcotic agent; Z88.8 Allergy status to other drugs, medicaments and biological substances; Z91.018 Allergy to other foods
CPT/HCPCS: 99283

== ENCOUNTER 2018-11-22 16:04 | Emergency (ER) | payer OTHER ==
[~2018-11-22] VITALS: Ht 167.6 cm; Wt 74.2 kg
[2018-11-22 16:35] VITALS: BP 176/107
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
[2018-11-22] MEDS ORDERED: ACETAMINOPHEN EXTRA STRENGTH 500 MG TAB PO ONE (17:30)
--- NOTE | 2018-11-22 18:05 | NUR ---
ELISEO SOTO AWARE OF PATIENT BP, STATES TO RETAKE IN 5 MINS.
[2018-11-22] MEDS ORDERED: diphenhydrAMINE 50 MG CAP PO ONE (18:20)
[2018-11-22] MEDS ORDERED: cloNIDine 0.1 MG TAB PO ONE (18:20)
--- NOTE | 2018-11-22 18:20 | NUR ---
PATIENT NOW IN BED 10, REASSESSED PATIENT BP WAS 203/112, BEGAN TO FEEL NAUSEA, DIZZINESS, STATES " I DONT FEEL GOOD, IM STARTING TO SEE BLURRY."
[2018-11-22] MEDS ORDERED: clonazePAM 0.5 MG TAB PO ONE (19:10)
[2018-11-22] MEDS ORDERED: NALOXONE 0.4 MG/ML VIAL IVP ONE (19:30)
--- NOTE | 2018-11-22 19:30 | NUR ---
FIRST CONTACT WITH PATIENT PATIENT CURRENTLY SITTING IN [facility] C/O NOYOLA X 1 DAYS. PATIENT IS NOTED TO HAVE +FACIAL DROOP, +SLURRED SPEECH, +DECREASE SENSATION TO RIGHT SIDE OF UPPER AND LOWER EXTREMITIES, NO DROOLING OR POOLING OF ORAL SECRETIONS, +TONGUE DEVIATION, + DIZZINESS; PATIENT GCS 15, PERRLA 4/3 MM BILAT; SLOW TO RESPOND, LSN 1820, BS 98MG/DL, HOUSEHOLD REFRIGERATION MECHANIC STRENGTHS 5/5 ON L SIDE, 3/5 ON RIGHT SIDE. NO NEGLECT IS NOTED, NO DRIFTS NOTED TO BUE/BLE. PATIENT BP IS HYPERTENSIVE, 180-200 SBP, DR TIAN AT BEDSIDE, CALLED CODE BRAIN. BREATHING IS EVEN AND UNLABORED, EQUAL RISE AND FALL OF CHEST, PATIENT HR 70-90 BPM, ON CM, NO ECTOPY NOTED. ORDERS FOR STAT CT, WILL CONTINUE TO MONITOR
[2018-11-22] MEDS ORDERED: NACL 0.9% 1,000 ML IV ONE (19:55)
[2018-11-22 20:12] LABS: BASOPHILS % (AUTO) 0.5 % (0.0-2.0); EOSINOPHILS % (AUTO) 1.3 % (0.0-4.0); HEMATOCRIT 37.8 % (36-48); HEMOGLOBIN 11.9 g/dL (12.0-16.0); LYMPHOCYTES # (AUTO) 0.8 K/uL (2.5-16.5); LYMPHOCYTES % (AUTO) 28.7 % (20.5-51.1); MEAN CORPUSCULAR HEMOGLOBIN 25 pg (27-31); MEAN CORPUSCULAR HGB CONC 32 g/dL (33-37); MEAN CORPUSCULAR VOLUME 77.7 fL (80-94); MONOCYTES # (AUTO) 0.2 K/uL (0.8-1.0); MONOCYTES % (AUTO) 7.3 % (1.7-9.3); NEUTROPHILS # (AUTO) 1.8 K/uL (1.8-7.7); NEUTROPHILS % (AUTO) 62.2 % (42.2-75.2); PLATELET COUNT (AUTO) 350 K/uL (140-450); RED BLOOD CELL COUNT(AUTO) 4.86 MIL/uL (4.20-5.40); WHITE BLOOD COUNT (AUTO) 2.9 K/uL (4.8-10.8)
--- NOTE | 2018-11-22 20:17 | NUR ---
Patient to be transferred to [facility]. Is being transferred due to HIGHER LEVEL OF CARE. Receiving facility has accepting physician and available space. ER physician has signed transfer form. Patient or responsible republican has agreed to transfer and signed form. Patient belongings inventoried and will be sent with patient. Copy of nursing notes, lab reports, EKG, Physicians Orders and X-rays to be sent with patient. Report called to CANELO HAM at receiving facility. Ambulance service has been called for transfer. ETA is 10 MINS
[2018-11-22 20:23] LABS: ANION GAP 17.4 (8-16); CREATININE 0.7 mg/dL (0.6-1.3); POTASSIUM 3.4 mmol/L (3.5-5.1)
[2018-11-22 20:26] LABS: ALBUMIN 3.8 g/dL (3.4-5.0); TOTAL BILIRUBIN 0.6 mg/dL (0.0-1.0)
[2018-11-22 20:32] LABS: PROTHROMBIN TIME 10.7 secs (10.8-13.4)
[2018-11-22 20:33] VITALS: BP 174/95
--- NOTE | 2018-11-22 20:33 | NUR ---
[facility] AT BEDSIDE, REPORT GIVEN TO [facility], PATIENT GCS 15, AAOX4, BREATHING IS EVEN AND UNLABORED EQUAL RISE AND FALL OF CHEST, NO ACUTE DISTRESS NOTED, TRANSFER OF CARE AT THIS TIME
--- NOTE | 2018-11-24 07:56 | NUR ---
Late entry. Confirmed with RN that 1000ml 0.9 NS IV bolus completed at 2100.
== END 2018-11-22 20:33 | disposition short-term general hospital (02) ==
LOC: MED 16:04
DX: R53.1 Weakness (principal); I16.0 Hypertensive urgency; R42 Dizziness and giddiness; M54.2 Cervicalgia; J45.909 Unspecified asthma, uncomplicated; I21.9 Acute myocardial infarction, unspecified; I10 Essential (primary) hypertension; F41.9 Anxiety disorder, unspecified; Z79.82 Long term (current) use of aspirin; Z79.899 Other long term (current) drug therapy; Z88.5 Allergy status to narcotic agent; Z88.8 Allergy status to other drugs, medicaments and biological substances; Z91.018 Allergy to other foods; Z86.73 Personal history of transient ischemic attack (TIA), and cerebral infarction without residual deficits
CPT/HCPCS: 36415; 70450; 71045; 80053; 84484; 85025; 85610; 85730; 86886; 86900; 86901; 93005; 96361; 96374; 99285; J2310; J7030; Q0092; Q0163

== ENCOUNTER 2018-12-26 21:08 | Emergency (ER) | payer OTHER ==
[~2018-12-26] VITALS: Ht 170.2 cm; Wt 71.7 kg
[2018-12-26 21:38] VITALS: BP 144/87
[2018-12-26] MEDS ORDERED: IBUPROFEN 800 MG TAB PO ONE (21:45)
--- NOTE | 2018-12-26 21:47 | NUR ---
PT AMBULATED TO BED 7. PROVIDING URINE.
--- NOTE | 2018-12-26 22:09 | NUR ---
PT TO ED BIB SELF FOR C/O SOB, N/V/D, COUGH, X1 DAY. INSPIRATORY WHEEZES HEARD BILATERALLY UPON INSPIRATION AND EXPIRATION. PRODUCTIVE COUGH X 1 DAY. +N/V/D. ABD IS SOFT NON TENDER. PT PLACED ONTO ALL MONITORS, PENDING MD SIERRA. HX: ASTHMA, HTN, X4 STENTS, X2 STROKE, X5 BLOOD TRANSFUSIONS, SEIZURES
[2018-12-26] MEDS ORDERED: NACL 0.9% 500 ML IV SCH (22:24)
[2018-12-26] MEDS ORDERED: fentaNYL 0.05 MG/ML VIAL IVP ONE (22:25)
[2018-12-26] MEDS ORDERED: ALBUTEROL SULFATE/IPRATROPIU 3 ML SOL IH ONE (22:25)
[2018-12-26] MEDS ORDERED: METOCLOPRAMIDE 10 MG/2 ML INJ VIAL IVP ONE (22:25)
[2018-12-26 22:50] LABS: BASOPHILS % (AUTO) 0.2 % (0.0-2.0); HEMATOCRIT 31.8 % (36-48); HEMOGLOBIN 10.4 g/dL (12.0-16.0); LYMPHOCYTES # (AUTO) 0.5 K/uL (2.5-16.5); LYMPHOCYTES % (AUTO) 11.1 % (20.5-51.1); MEAN CORPUSCULAR HEMOGLOBIN 26 pg (27-31); MEAN CORPUSCULAR HGB CONC 33 g/dL (33-37); MEAN CORPUSCULAR VOLUME 78.6 fL (80-94); MONOCYTES # (AUTO) 0.5 K/uL (0.8-1.0); MONOCYTES % (AUTO) 12.5 % (1.7-9.3); NEUTROPHILS # (AUTO) 3.2 K/uL (1.8-7.7); NEUTROPHILS % (AUTO) 76.2 % (42.2-75.2); PLATELET COUNT (AUTO) 214 K/uL (140-450); RED BLOOD CELL COUNT(AUTO) 4.05 MIL/uL (4.20-5.40); WHITE BLOOD COUNT (AUTO) 4.2 K/uL (4.8-10.8)
[2018-12-26 22:50] LABS: APPEARANCE,URINE CLEAR (CLEAR); BILIRUBIN,URINE 1+ (NEGATIVE); BLOOD, URINE NEGATIVE (NEGATIVE); COLOR,URINE YELLOW (YELLOW); LEUKOCYTE ESTERASE ,URINE NEGATIVE (NEGATIVE); NITRITE, URINE NEGATIVE (NEGATIVE); UGLUCOSE NEGATIVE (NEGATIVE)
--- NOTE | 2018-12-26 22:50 | NUR ---
RT AT BEDSIDE.
[2018-12-26 23:02] LABS: ANION GAP 13.8 (8-16); CREATININE 0.8 mg/dL (0.6-1.3); POTASSIUM 3.8 mmol/L (3.5-5.1)
[2018-12-26 23:08] LABS: ALBUMIN 2.9 g/dL (3.4-5.0); TOTAL BILIRUBIN 0.5 mg/dL (0.0-1.0)
--- NOTE | 2018-12-26 23:16 | NUR ---
PT AMBULATED TO BATHROOM WITH OUT ASSIST. PT REPROTS PAIN AT 5/10 PER PT "I FEEL SO MUCH BETTER AFTER THAT MEDICINE" VSS. WILL CONTINUE TO MONITOR.
[2018-12-26 23:17] LABS: PROTHROMBIN TIME 11.1 secs (10.8-13.4)
[2018-12-26] MEDS ORDERED: NACL 0.9% 2,500 ML IV ONE (23:20)
[2018-12-26 23:25] LABS: RBC,URINE NONE SEEN /HPF (0-5)
[2018-12-26 23:26] LABS: WBC,URINE 0-5 /HPF (0-5)
--- NOTE | 2018-12-27 00:02 | NUR ---
PATIENT RESTING IN BED AT THIS TIME.
[2018-12-27 01:00] VITALS: BP 139/88
--- NOTE | 2018-12-27 01:00 | NUR ---
Patient discharged with v/s stable. Written and verbal after care instructions given and explained. Patient alert, oriented and verbalized understanding of instructions. Ambulatory with steady gait. All questions addressed prior to discharge. ID band removed. Patient advised to follow up with PMD. Rx of KLONOPIN, ALBUTEROL, SEROQUEL given. Patient educated on indication of medication including possible reaction and side effects. Opportunity to ask questions provided and answered.
== END 2018-12-27 01:00 | disposition home or self-care (01) ==
LOC: MED 21:08
DX: J10.1 Influenza due to other identified influenza virus with other respiratory manifestations (principal); J45.909 Unspecified asthma, uncomplicated; I25.2 Old myocardial infarction; I10 Essential (primary) hypertension; Z86.73 Personal history of transient ischemic attack (TIA), and cerebral infarction without residual deficits; Z88.5 Allergy status to narcotic agent; Z88.8 Allergy status to other drugs, medicaments and biological substances; Z91.018 Allergy to other foods; Z79.82 Long term (current) use of aspirin; Z79.899 Other long term (current) drug therapy
CPT/HCPCS: 36415; 71045; 80053; 81001; 83605; 83880; 84484; 85025; 85610; 85730; 87040; 87086; 87804; 93005; 94640; 96361; 96374; 96375; 99284; J2765; J3010; J7030; J7620; Q0092; 81003

== ENCOUNTER 2019-07-09 00:02 | Inpatient (IN) | payer MEDICAID, OTHER ==
[~2019-07-09] VITALS: Ht 167.6 cm; Wt 74.8 kg
[2019-07-09 00:12] VITALS: BP 178/104
--- NOTE | 2019-07-09 00:35 | NUR ---
PT WHEELCHAIRED TO ER BED 09
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
--- NOTE | 2019-07-09 00:41 | NUR ---
PT EXPRESSED THAT SHE WOULD LIKE TO SPEAK TO A MENTAL HEALTH DOCTOR. PT STATED SHE HAS THOUGHTS OF SUICIDE IDEATION THIS WEEK. PT ALSO STATED SHE STILL FEELS LIKE SHE WANTS TO TAKE PILLS TODAY AND KILL HERSELF. PT STATED SHE HAS A LOT OF HEALTH PROBLEM AND PERSONAL PROBLEMS WITH PTSD. PT HAS HX OF BOARDERLINE PERSONALITY DISORDER, BIPOLAR, DEPRESSION, ANXIETY AND MANIC DEPRESSIVE. ER MADE AWARE OF STATUS.
--- NOTE | 2019-07-09 01:28 | NUR ---
SIEZURE PRECAUTIONS PUT IN PLACE, PADS ON BOTH RAILS, RAILS X 2 UP. ER MD MADE AWARE OF STATUS.
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
--- NOTE | 2019-07-09 03:30 | NUR ---
PT TEARFUL. PT HAS C/O PAIN TO LT KNEE. DR. ROJO MADE AWARE
[2019-07-09 03:53] LABS: HEMATOCRIT 33.5 % (36-48); HEMOGLOBIN 10.6 g/dL (12.0-16.0); MEAN CORPUSCULAR HEMOGLOBIN 25 pg (27-31); MEAN CORPUSCULAR HGB CONC 32 g/dL (33-37); MEAN CORPUSCULAR VOLUME 78.5 fL (80-94); PLATELET COUNT (AUTO) 290 K/uL (140-450); RED BLOOD CELL COUNT(AUTO) 4.27 MIL/uL (4.20-5.40); RED CELL DISTRIBUTION WIDTH 19.5 % (11.6-13.7); WHITE BLOOD COUNT (AUTO) 2.5 K/uL (4.8-10.8)
[2019-07-09] MEDS ORDERED: KETOROLAC 15 MG/ML VIAL IM ONE (03:55)
[2019-07-09] MEDS ORDERED: FAMOTIDINE 20 MG TAB PO ONE (03:55)
--- NOTE | 2019-07-09 04:00 | NUR ---
ULTRASOUND AT BEDSIDE.
[2019-07-09 04:19] LABS: EOSINOPHILS % (MANUAL) 6 % (0-4); LYMPHOCYTES % (MANUAL) 49 % (20-46); MONOCYTES % (MANUAL) 6 % (5-12)
[2019-07-09 04:22] LABS: ALBUMIN 3.8 g/dL (3.4-5.0); ANION GAP 13.4 (8-16); ASPARTATE AMINOTRANSFERASE 29 U/L (15-37); CARBON DIOXIDE 26.4 mmol/L (21-32); CHLORIDE 106 mmol/L (98-107); CREATININE 0.6 mg/dL (0.6-1.3); GFR ARICAN-AMERICAN 134 mL/min (>90); GLUCOSE 83 mg/dL (74-106); SODIUM SERUM 143 mmol/L (136-145); THYROID STIMULATING HORMONE 1.31 uIU/mL (0.34-3.74); TOTAL BILIRUBIN 0.4 mg/dL (0.0-1.0); UREA NITROGEN, BLOOD 8 mg/dL (7-18)
[2019-07-09 04:26] LABS: ACETAMINOPHEN < 0.5 ug/ml (10-30); POTASSIUM 2.8 mmol/L (3.5-5.1); SALICYLATE < 2.8 mg/dL (2.8-20.0)
[2019-07-09 04:41] LABS: BARBITURATE, URINE NEG. ng/ml (NEG <=200); BENZODIAZEPINE, URINE NEG. ng/mL (NEG <=200); CANNABINOID, URINE POS. ng/mL (NEG <=50); COCAINE, URINE NEG. ng/mL (NEG <=300); OPIATE, URINE NEG. ng/mL (NEG <=2000); PHENCYCLIDINE SCREEN,URINE NEG. ng/mL (NEG <=25)
--- NOTE | 2019-07-09 04:44 | NUR ---
PT SEEN WITH EYES CLOSED. VISIBLE CHEST RISE AND FALL NOTED. SEIZURE PRECAUTIONS IN PLACE. EMT AT BEDSIDE. WILL CONTINUE TO MONITOR.
[2019-07-09] MEDS ORDERED: POTASSIUM CHLORIDE 10 MEQ TABER PO ONE (05:10)
--- NOTE | 2019-07-09 06:27 | NUR ---
PT SEEN WITH EYES CLOSED. VISIBLE CHEST RISE AND FALL NOTED. SEIZURE PRECAUTIONS IN PLACE. EMT AT BEDSIDE. WILL CONTINUE TO MONITOR.
--- NOTE | 2019-07-09 07:12 | NUR ---
REPORT GIVEN TO JITENDRA ROSARIO. PT IN STABLE CONDITION. TRANSFER OF CARE AT THIS TIME.
--- NOTE | 2019-07-09 07:22 | NUR ---
PT RESTING WITH OU CLOSED, NO S/S RESP DISTRESS--NO GRIMACE OR MOAN NOTED. SITTER REMAINS AT BEDSIDE
--- NOTE | 2019-07-09 08:35 | NUR ---
PSYCHIATRIST DR. MONCADA REQUSTING INFORMATION ON PT-- MD WILL SPEAK WITH PT VIA TELEPSYCH
--- NOTE | 2019-07-09 08:42 | NUR ---
Dr. Victor evaluating patient via Telepsychiatry.
--- NOTE | 2019-07-09 09:11 | NUR ---
PT ATE 100% OF BREAKFAST
[2019-07-09 10:51] LABS: APPEARANCE,URINE SL CLOUDY (CLEAR); BILIRUBIN,URINE NEGATIVE (NEGATIVE); BLOOD, URINE NEGATIVE (NEGATIVE); COLOR,URINE YELLOW (YELLOW); LEUKOCYTE ESTERASE ,URINE TRACE (NEGATIVE); NITRITE, URINE NEGATIVE (NEGATIVE); PH,URINE 6.5 (5.0-9.0); UGLUCOSE NEGATIVE (NEGATIVE)
--- NOTE | 2019-07-09 11:11 | NUR ---
[employer] [employer] OFFICER ABAD SPEAKING WITH PT FOR [id number]
[2019-07-09 11:21] LABS: RBC,URINE NONE SEEN /HPF (0-5)
--- NOTE | 2019-07-09 13:09 | NUR ---
PT AMBULATED TO RESTROOM AND BACK--COOPERATIVE CONTINUES TO WAIT FOR PLACEMENT--[address] SITTER REMAINS AT BEDSIDE
[2019-07-09] MEDS ORDERED: clonazePAM 0.5 MG TAB PO ONE (13:45)
[2019-07-09] MEDS ORDERED: LORazepam 2 MG/ML VIAL IM/IVP PRN (17:45)
[2019-07-09] MEDS ORDERED: ACETAMINOPHEN 325 MG TAB PO PRN (17:45)
--- NOTE | 2019-07-09 18:14 | NUR ---
Pt transferred to Tele via [facility] room 110-a report given to Kelly HAM
--- NOTE | 2019-07-09 18:32 | NUR ---
RECIEVED PATIENT FROM PILOT CONTROL OPERATOR HELPER, LARRY, FOR CONTINUITY OF CARE. PATIENT IS AAOX4, SKIN IS WARM AND DRY, INTACT. ABLE TO AMBULATE TO BED. SHE IS ON ROOM AIR, SR ON MONITOR, DENIES PAIN AT THIS TIME. NO SIGNS OF DISTRESS NOTED. SHE IS ON 51/50 HOLD. ROOM ASSESSED FOR SAFETY
[2019-07-09 19:15] VITALS: BP 170/73
--- NOTE | 2019-07-09 19:15 | NUR ---
RECEIVED REPORT FROM MENG VALDOVINOS. PATIENT IS ON A 51/50 HOLD, WITH 1:1 SITTER AT BEDSIDE, AOX4, COMPLAINTS OF PAIN, NO IV SITE WHEN RECEIVED FROM ED, WILL INSERT ONE, SKIN IS DRY AND INTACT BUT WITH STITCHES ON KNEE, MRSA OF NARES COLLECTED AND SENT TO LAB, BED ON LOW POSITION, ROOM AIR, WILL CONTINUE TO MONITOR.
[2019-07-09] MEDS ORDERED: ZOLPIDEM 5 MG TAB PO PRN (19:50)
[2019-07-09] MEDS ORDERED: KETOROLAC 30 MG/ML VIAL IM PRN (19:55)
[2019-07-09] MEDS ORDERED: clonazePAM 0.5 MG TAB PO PRN (20:15)
[2019-07-09] MEDS ORDERED: KCL 20 MEQ/WATER INJ PREMIX 100 ML IV SCH (20:30)
[2019-07-09] MEDS ORDERED: BENAZEPRIL 20 MG TAB PO SCH (21:00)
[2019-07-09] MEDS ORDERED: cefTRIAXone 1,000 MG VIAL ONE (21:34)
--- NOTE | 2019-07-09 22:15 | NUR ---
DR. RIBERA SAID TO GIVE ONE BAG OF K-RIDER AT THE MOMENT. IF POTASSIUM IS STILL LOW AFTER AM LABS, WILL GIVE SECOND BAG OF K-RIDER PER DR. RIBERA.
--- NOTE | 2019-07-09 22:20 | NUR ---
STARTED AN IV ON PATIENT, LEFT WRIST 22G, INTACT AND PATENT.
[2019-07-09] MEDS: QUEtiapine FUMARATE 100 MG TAB PO SCH (22:24)
[2019-07-09] MEDS: DIVALPROEX 500 MG TABER PO SCH (22:24)
--- NOTE | 2019-07-09 22:30 | NUR ---
ADMINISTERED PATIENT MEDICATIONS ORDERED, NO SIGNS OF DISTRESS, WILL CONTINUE TO MONITOR
[2019-07-09] MEDS: KETOROLAC 30 MG/ML VIAL IM/IVP PRN (22:43)
[2019-07-10] VITALS (7 sets, daily range): BP systolic 106–189; BP diastolic 56–95
--- NOTE | 2019-07-10 01:22 | NUR ---
MADE ROUNDS, PATIENT IS SLEEPING COMFORTABLY, NO COMPLAINTS OF PAIN, BREATHING IS UNLABORED AND EVEN, 1:1 SITTER AT BEDSIDE, WILL CONTINUE TO MONITOR.
--- NOTE | 2019-07-10 03:03 | NUR ---
PATIENT IS SLEEPING SUPINE AND COMFORTABLY, NO SIGNS OF DISTRESS NOTED, 1:1 SITTER AT BEDSIDE, PADDED SIDE RAILS, CALL LIGHT WITHIN REACH, WILL CONTINUE TO MONITOR.
--- NOTE | 2019-07-10 05:00 | NUR ---
MADE ROUNDS. PT SLEEPING WELL. NO S/S OF ANY PAIN NOTED.
--- NOTE | 2019-07-10 06:00 | NUR ---
SLEEPING WELL. SIDE RAILS ARE PADDED. NO SEIZURE ACTIVITY NOTED DURING THE NIGHT.
--- NOTE | 2019-07-10 07:29 | NUR ---
ENDORSED PT IN STABLE CONDITION TO AM NURSE FOR CONTINUITY OF CARE.
--- NOTE | 2019-07-10 09:06 | NUR ---
Change of shift report given, will continue to monitor notes and help facilitate placement
[2019-07-10] MEDS: CLOPIDOGREL 75 MG TAB PO SCH (09:13)
[2019-07-10] MEDS: BENAZEPRIL 20 MG TAB PO SCH (09:13)
[2019-07-10] MEDS: FERROUS SULFATE 325 MG TABEC PO SCH ×3 (09:14→17:37)
[2019-07-10] MEDS: DIVALPROEX 500 MG TABER PO SCH ×2 (09:14→21:13)
[2019-07-10] MEDS: ASPIRIN 81 MG TAB.CHEW PO SCH (09:15)
[2019-07-10] MEDS: LACTOBACILLUS RHAMNOSUS GG 1 EACH CAP PO SCH (09:15)
[2019-07-10] MEDS: KETOROLAC 30 MG/ML VIAL IM/IVP PRN ×2 (14:45→21:58)
[2019-07-10] MEDS: LORazepam 2 MG/ML VIAL IM/IVP PRN (14:54)
[2019-07-10 15:10] LABS: EOSINOPHILS # (AUTO) 0.3 K/uL (0-0.4); EOSINOPHILS % (AUTO) 11.4 % (0.0-4.0); HEMATOCRIT 34.3 % (36-48); HEMOGLOBIN 10.9 g/dL (12.0-16.0); LYMPHOCYTES # (AUTO) 0.8 K/uL (2.5-16.5); LYMPHOCYTES % (AUTO) 32.9 % (20.5-51.1); MEAN CORPUSCULAR HEMOGLOBIN 25 pg (27-31); MEAN CORPUSCULAR HGB CONC 32 g/dL (33-37); MEAN CORPUSCULAR VOLUME 79.1 fL (80-94); MONOCYTES # (AUTO) 0.2 K/uL (0.8-1.0); MONOCYTES % (AUTO) 8.6 % (1.7-9.3); NEUTROPHILS # (AUTO) 1.1 K/uL (1.8-7.7); NEUTROPHILS % (AUTO) 46.1 % (42.2-75.2); PLATELET COUNT (AUTO) 269 K/uL (140-450); RED BLOOD CELL COUNT(AUTO) 4.35 MIL/uL (4.20-5.40); RED CELL DISTRIBUTION WIDTH 19.6 % (11.6-13.7); WHITE BLOOD COUNT (AUTO) 2.3 K/uL (4.8-10.8)
[2019-07-10 15:24] LABS: ANION GAP 13.3 (8-16); CARBON DIOXIDE 25.5 mmol/L (21-32); CREATININE 0.7 mg/dL (0.6-1.3); POTASSIUM 3.8 mmol/L (3.5-5.1)
--- NOTE | 2019-07-10 19:25 | NUR ---
RECEIVED PT IN STABLE CONDITION FROM AM NURSE. PT ON TELE. 1;1 SITTER DUE TO SUICIDAL IDEATION. PT HAS HL ON THE LT WRIST G#22. CLEAR AND PATENT. NO C/O ANY DISCOMFORT NOR APIN NOTED. PLAN OF CARE DISCUSSED AND VERBALIZED UNDERSTANDING. BED ON LOWEST POSITION. FREQ ROUNDS NEEDED. SIDE RAILS ARE PADDED FOR SEIZURE PRECAUTION. WILL CONTINUE TO MONITOR.
[2019-07-10] MEDS: QUEtiapine FUMARATE 100 MG TAB PO SCH (21:13)
--- NOTE | 2019-07-10 21:58 | NUR ---
PT C/O KNEE PAIN 04/20. BP ELEVATED 189/99. PT SAID MAYBE BECAUSE OF PAIN. MEDICATED WITH TORADOL 30 MG IM . PT NO IV ACCESS. WILL CONTINUE TO MONITOR.
--- NOTE | 2019-07-10 23:00 | NUR ---
DR. RIBERA ,RESIDENT MADE AWARE THAT BP STILL 177/995 AFTER THE PAIN MEDICATION EARLIER. HE SAID HE WILL CHECK INTO IT.
[2019-07-11] MEDS: BENAZEPRIL 20 MG TAB PO SCH ×2 (00:30→09:39)
[2019-07-11 00:33] VITALS: BP 111/48
--- NOTE | 2019-07-11 00:33 | NUR ---
LOTENSIN DOSE NOT GIVEN FOR BP DOWN TO 111/48. DR. RIBERA MADE AWARE.
--- NOTE | 2019-07-11 02:00 | NUR ---
MADE ROUNDS. ASLEEP. 1;1 SITTER STILL AT BEDSIDE. WILL CONTINUE TO MONITOR.
[2019-07-11 04:00] VITALS: BP 132/66
--- NOTE | 2019-07-11 04:53 | NUR ---
No beds availlable for placement at this time , Notified Daphne HAM the hold is incomplete and will need a copy of a complete hold .
--- NOTE | 2019-07-11 05:00 | NUR ---
PT AWAKE. HAVING SOME CRACKERS AND JUICE. NO C/O ANY DISCOMFORT NOR PAIN AT THIS TIME.
--- NOTE | 2019-07-11 06:30 | NUR ---
PT ASLEEP. NO S/S OF ANY PAIN NOTED. WILL CONTINUE TO MONITOR.
--- NOTE | 2019-07-11 07:35 | NUR ---
ENDORSED PT TO JITENDRA CHINDESTINATION SPECIALIST IN STABLE CONDITION.
[2019-07-11 08:27] LABS: EOSINOPHILS # (AUTO) 0.2 K/uL (0-0.4); EOSINOPHILS % (AUTO) 8.8 % (0.0-4.0); HEMATOCRIT 31.7 % (36-48); HEMOGLOBIN 10.2 g/dL (12.0-16.0); LYMPHOCYTES # (AUTO) 0.7 K/uL (2.5-16.5); LYMPHOCYTES % (AUTO) 33.6 % (20.5-51.1); MEAN CORPUSCULAR HEMOGLOBIN 25 pg (27-31); MEAN CORPUSCULAR HGB CONC 32 g/dL (33-37); MEAN CORPUSCULAR VOLUME 78.5 fL (80-94); MONOCYTES # (AUTO) 0.2 K/uL (0.8-1.0); MONOCYTES % (AUTO) 9.2 % (1.7-9.3); NEUTROPHILS % (AUTO) 47.4 % (42.2-75.2); PLATELET COUNT (AUTO) 242 K/uL (140-450); RED BLOOD CELL COUNT(AUTO) 4.04 MIL/uL (4.20-5.40); RED CELL DISTRIBUTION WIDTH 19.4 % (11.6-13.7); WHITE BLOOD COUNT (AUTO) 2.1 K/uL (4.8-10.8)
--- NOTE | 2019-07-11 08:27 | NUR ---
PATIENT HAS BEEN SCREENED AND CATEGORIZED LOW NUTRITION RISK. PATIENT WILL BE SEEN WITHIN 7 DAYS OF ADMISSION. 07/16/[address]
[2019-07-11 08:34] LABS: CARBON DIOXIDE 23.8 mmol/L (21-32); CREATININE 0.6 mg/dL (0.6-1.3); POTASSIUM 3.8 mmol/L (3.5-5.1)
[2019-07-11 08:45] LABS: MAGNESIUM 1.8 mg/dL (1.8-2.4); PHOSPHORUS 3.5 mg/dL (2.5-4.9)
[2019-07-11 09:06] LABS: T4 (THYROXINE) 7.1 ug/dL (4.5-12.0)
[2019-07-11] MEDS: LACTOBACILLUS RHAMNOSUS GG 1 EACH CAP PO SCH (09:38)
[2019-07-11] MEDS: FERROUS SULFATE 325 MG TABEC PO SCH ×3 (09:38→18:04)
[2019-07-11] MEDS: CLOPIDOGREL 75 MG TAB PO SCH (09:38)
[2019-07-11] MEDS: ASPIRIN 81 MG TAB.CHEW PO SCH (09:38)
[2019-07-11] MEDS: DIVALPROEX 250 MG TABEC PO SCH ×2 (09:40→20:46)
[2019-07-11] MEDS: DULoxetine 30 MG CAPDR PO SCH (09:40)
[2019-07-11 09:44] VITALS: BP 134/73
--- NOTE | 2019-07-11 09:48 | NUR ---
PATIENT SLEEPING, ABLE TO WAKE UP AND TAKE HER AM MEDS, PATIENT COOPERATIVE AT THIS TIME, NO SOB, CALL LIGHT WITHIN EASY REACH.
--- NOTE | 2019-07-11 11:04 | NUR ---
PATIENT EATING IN BED, ABLE TO CONVERSE APPROPRIATELY, SKIN WARM TO TOUCH RESP. EVEN AND UNLABORED/
[2019-07-11 12:00] VITALS: BP 134/73
--- NOTE | 2019-07-11 12:11 | NUR ---
Left voicemail for Madeline regarding patient. Need new 5150 with time written. [facility] 5150 has no time written
[2019-07-11] MEDS: KETOROLAC 30 MG/ML VIAL IM/IVP PRN (13:58)
[2019-07-11] MEDS: LORazepam 2 MG/ML VIAL IM/IVP PRN (13:59)
--- NOTE | 2019-07-11 14:30 | NUR ---
SPOKE TO SHANNAN FROM CALL CENTER AND FAXED THE 3910 COPY WITH THE TIME AND DATE.
--- NOTE | 2019-07-11 14:40 | NUR ---
RECEIVED REPORT FROM JITENDRA CHIN. PT HAS NO SIGNS OF DISTRESS AT THIS TIME. AWAITING PSYCH FACILITY PLACEMENT.
[2019-07-11 16:00] VITALS: BP 138/74
--- NOTE | 2019-07-11 16:25 | NUR ---
PT HAS NO C/O PAIN AT THIS TIME. PT STATES "I HAD A GOOD NAP." NO SIGNS OF DISTRESS AT THIS TIME.
--- NOTE | 2019-07-11 19:15 | NUR ---
ENDORSED PT TO GRADE FOREMAN NURSE. PT HAS NO SIGNS OF DISTRESS AT THIS TIME.
[2019-07-11 20:45] VITALS: BP 146/70
--- NOTE | 2019-07-11 20:45 | NUR ---
SEEN PT ASLEEP BUT AROUSABLE. INITIAL ASSESSMENT DONE. VITAL SIGNS CHECKED. PT NOT IN ANY DISCOMFORT. IV ACCESS LEAKING. INSERTED NEW IV ON RT FA G22 W/ GOOD BLOOD RETURN. IV ROCEPHIN GIVEN AND SCHEDULED PO MEDICATIONS GIVEN WELL W/ TEACHINGS. PT VERBALIZED UNDERSTANDING. NO OTHER NEEDS AT THIS TIME. SAFETY REINFORCED. WILL CONTINUE TO MONITOR.
[2019-07-11] MEDS: QUEtiapine FUMARATE 100 MG TAB PO SCH (20:46)
--- NOTE | 2019-07-11 21:06 | NUR ---
Called the following facilities; [facility] s[facility]w Gina no beds [facility] s/w Syed fax for review [facility]-fax [facility]fax [facility]fax [facility]w Rayo ghotra beds
--- NOTE | 2019-07-12 00:02 | NUR ---
Still no beds available at any of the designated facilities , will continue to make calls for placement.
--- NOTE | 2019-07-12 00:15 | NUR ---
SEEN PT SLEEPING COMFORTABLY. SITTER 1:1 AT BEDSIDE. WILL CONTINUE TO MONITOR.
--- NOTE | 2019-07-12 00:20 | NUR ---
BP CHECKED:105/95. MEDICATIONS NOT GIVEN PER PARAMETER. PT DENIES ANY NEEDS.
[2019-07-12] MEDS: BENAZEPRIL 20 MG TAB PO SCH ×2 (00:30→10:10)
--- NOTE | 2019-07-12 02:20 | NUR ---
SEEN PT SLEEPING COMFORTABLY IN BED. SITTER 1: AT BEDSIDE. WILL CONTINUE TO MONITOR.
[2019-07-12 04:50] VITALS: BP 139/79
--- NOTE | 2019-07-12 04:50 | NUR ---
SEEN PT ASLEEP BUT AROUSABLE. VITAL SIGNS CHECKED. PT DENIES ANY DISCOMFORT. PT GOT UP AND WANTS TO GO BATHROOM. PT DENIES ANY OTHER NEEDS.
[2019-07-12 06:08] LABS: FOLIC ACID 12.5 ng/mL (>3.0)
--- NOTE | 2019-07-12 06:30 | NUR ---
PT SLEEPING COMFORTABLY. SITTER AT BEDSIDE. WILL ENDORSE CARE TO DAYSHIFT NURSE.
--- NOTE | 2019-07-12 06:59 | NUR ---
AWAKEN PT. HOB ELEVATED. PO PROTONIX GIVEN ORDERED W/ TEACHINGS. PT TOLERATED THE WHOLE PILL WITH WATER. PT DENIES ANY DISCOMFORT. WILL ENDORSE CARE TO DAYSWIFT NURSE. Addendum: 07/12/19 at 0700 by Purnima Rivera RN WRONG PATIENT
--- NOTE | 2019-07-12 07:38 | NUR ---
RECEIVED REPORT FROM PORTABLE TRACK LINE MARKER RN. PT IS AAOX4. NO SIGNS OF CONFUSION. PT SKIN IS INTACT. PT WAS SLEEPING UPON ENTERING ROOM. AWOKE PT AND INTRODUCED SELF. EXPLAINED POC TO PT. PT VERBALIZED UNDERSTANDING. PT PENDING PSYCH EVAL WITH . ALL NEEDS CURRENTLY MET. SITTER AT BEDSIDE 1:1. WILL ROUND FREQUENTLY ON PT.
[2019-07-12 07:59] LABS: BASOPHILS % (AUTO) 0.5 % (0.0-2.0); EOSINOPHILS # (AUTO) 0.2 K/uL (0-0.4); EOSINOPHILS % (AUTO) 9.5 % (0.0-4.0); HEMATOCRIT 33.1 % (36-48); HEMOGLOBIN 10.6 g/dL (12.0-16.0); LYMPHOCYTES # (AUTO) 0.8 K/uL (2.5-16.5); LYMPHOCYTES % (AUTO) 36.6 % (20.5-51.1); MEAN CORPUSCULAR HEMOGLOBIN 25 pg (27-31); MEAN CORPUSCULAR HGB CONC 32 g/dL (33-37); MEAN CORPUSCULAR VOLUME 78.4 fL (80-94); MONOCYTES # (AUTO) 0.2 K/uL (0.8-1.0); MONOCYTES % (AUTO) 9.2 % (1.7-9.3); NEUTROPHILS # (AUTO) 0.9 K/uL (1.8-7.7); NEUTROPHILS % (AUTO) 44.2 % (42.2-75.2); PLATELET COUNT (AUTO) 265 K/uL (140-450); RED BLOOD CELL COUNT(AUTO) 4.22 MIL/uL (4.20-5.40); RED CELL DISTRIBUTION WIDTH 20.1 % (11.6-13.7); WHITE BLOOD COUNT (AUTO) 2.1 K/uL (4.8-10.8)
[2019-07-12 08:00] LABS: ANION GAP 13.1 (8-16); CARBON DIOXIDE 23.5 mmol/L (21-32); CREATININE 0.6 mg/dL (0.6-1.3); POTASSIUM 3.6 mmol/L (3.5-5.1)
[2019-07-12 08:05] VITALS: BP 169/89
[2019-07-12 08:12] LABS: MAGNESIUM 1.7 mg/dL (1.8-2.4); PHOSPHORUS 3.2 mg/dL (2.5-4.9)
--- NOTE | 2019-07-12 09:45 | NUR ---
ADMINISTERED MORNING MEDS TO PT. PT TOLERATED THEM WELL. WILL CONTINUE TO ROUND FREQUENTLY ON PT. BED IN LOW POSITION. CALL LIGHT WITHIN REACH.
[2019-07-12] MEDS: ASPIRIN 81 MG TAB.CHEW PO SCH (10:10)
[2019-07-12] MEDS: CLOPIDOGREL 75 MG TAB PO SCH (10:10)
[2019-07-12] MEDS: LACTOBACILLUS RHAMNOSUS GG 1 EACH CAP PO SCH (10:10)
[2019-07-12] MEDS: DULoxetine 30 MG CAPDR PO SCH (10:10)
[2019-07-12] MEDS: FERROUS SULFATE 325 MG TABEC PO SCH ×3 (10:10→18:18)
[2019-07-12] MEDS: DIVALPROEX 250 MG TABEC PO SCH (10:10)
--- NOTE | 2019-07-12 11:19 | NUR ---
PT SLEEPING IN BED. ALL NEEDS MET. WILL CONTINUE TO ROUND FREQUENTLY ON PT. BED IN LOW POSITION, CALL LIGHT WITHIN REACH.
--- NOTE | 2019-07-12 13:29 | NUR ---
PT SLEEPING. WILL CONTINUE TO ROUND FREQUENTLY ON PT. BED IN LOW POSITION, CALL LIGHT WITHIN REACH.
--- NOTE | 2019-07-12 15:53 | NUR ---
PT SLEEPING IN BED. ALL NEEDS MET. WILL CONTINUE TO ROUND FREQUENTLY ON PT. PY HAS SITTER 1:1
[2019-07-12 16:00] VITALS: BP 154/70
--- NOTE | 2019-07-12 16:44 | NUR ---
CONTACTED [facility], SPOKE TO TONY. SHE STATED NO BEDS AVAILABLE THIS TIME AND 5150 HOLD IS . CHARGE NURSE MADE AWARE, SHE STATED, PSYCHE CLEARED THE PATIENT. CONTACTED TONY AND MADE HER AWARE.
[2019-07-12] MEDS ORDERED: CLON2TAB PO (17:32)
[2019-07-12] MEDS ORDERED: DIVA250E1 PO (17:40)
--- NOTE | 2019-07-12 17:55 | NUR ---
PT RESTING IN BED AWAITING DISCHARGE. PT IN STABLE CONDITION. WILL CONTINUE TO ROUND FREQUENTLY.
[2019-07-12] MEDS ORDERED: DULO30EC PO ×2 (18:10→18:13)
--- NOTE | 2019-07-12 19:03 | NUR ---
PT DISCHARGED TO HOME FOR SELF CARE. PT STATED THAT SHE LIVES WITH DAUGHTER BUT HER DAUGHTER LIVES [place]OO [place] SO SHE WILL BE STAYING WITH A FRIEND IN [place]. BUS VOUCHER WAS GIVEN FOR EASE OF TRANSPORTATION. ALL DISCHARGE PAPERWORK WAS SIGNED AND TAKEN WITH PT. PT VERBALIZED UNDERSTANDING OF TEACHING. ALL PERSONAL BELONGINGS WERE TAKE WITH PT. IV REMOVED WITH TIP INTACT. WRIST BANDS REMOVED AND PLACED IN SHRED BIN. PT LEFT IN STABLE CONDITION.
--- NOTE | 2019-07-12 19:21 | NUR ---
ENDORSED PT TO PANEL FITTER FOR CONTINUITY OF CARE. PT IN STABLE CONDITION AT THIS TIME. Addendum: 07/12/19 at 1923 by Soumya Estrada RN VOID
== END 2019-07-12 19:00 | disposition home or self-care (01) | DRG 463 ==
LOC: MED 00:02 → MTU 17:41
PROVIDERS: ADMIT General Practice; ATTEND General Practice
DX: N39.0 Urinary tract infection, site not specified (principal); R45.851 Suicidal ideations; E87.6 Hypokalemia; F15.10 Other stimulant abuse, uncomplicated; F12.10 Cannabis abuse, uncomplicated; D50.9 Iron deficiency anemia, unspecified; G40.909 Epilepsy, unspecified, not intractable, without status epilepticus; I10 Essential (primary) hypertension; M06.9 Rheumatoid arthritis, unspecified; J45.909 Unspecified asthma, uncomplicated; I25.2 Old myocardial infarction; Z95.5 Presence of coronary angioplasty implant and graft; Z86.73 Personal history of transient ischemic attack (TIA), and cerebral infarction without residual deficits; Z88.5 Allergy status to narcotic agent; Z91.013 Allergy to seafood; Z91.018 Allergy to other foods; Z83.3 Family history of diabetes mellitus; Z82.49 Family history of ischemic heart disease and other diseases of the circulatory system; Z80.9 Family history of malignant neoplasm, unspecified; Z91.14 Patient's other noncompliance with medication regimen
CPT/HCPCS: 36415; 71045; 73562; 76881; 80048; 80053; 80305; 81001; 81025; 82607; 82728; 82746; 83036; 83540; 83735; 84100; 84436; 84443; 85025; 85045; 87081; 87086; 96372; 99285; G0480; G0482; J0696; J1885; J2060; J3480; J7060; Q0092